=== PATIENT | female | born 1975 | race Caucasian/White ===

== ENCOUNTER 2021-06-15 14:18 | Outpatient (CLI) | payer BC | END 2021-06-15 14:19 | disposition home or self-care (01) | LOC: ULT 14:18 | PROVIDERS: ATTEND Specialist | DX: R22.32 Localized swelling, mass and lump, left upper limb (principal); N64.89 Other specified disorders of breast; N63.21 Unspecified lump in the left breast, upper outer quadrant; Z98.82 Breast implant status | CPT/HCPCS: 77066; G0279 ==

== ENCOUNTER 2021-06-29 11:30 | Outpatient (CLI) | payer BC | END 2021-06-29 11:31 | disposition home or self-care (01) | LOC: PET 11:30 | PROVIDERS: ATTEND Internal Medicine Hematology & Oncology | DX: C50.112 Malignant neoplasm of central portion of left female breast (principal); C79.89 Secondary malignant neoplasm of other specified sites; R22.32 Localized swelling, mass and lump, left upper limb; Z98.890 Other specified postprocedural states; Z98.82 Breast implant status | CPT/HCPCS: 78815; A9552 ==

== ENCOUNTER 2023-01-03 09:36 | Outpatient (CLI) | payer BC | END 2023-01-03 09:37 | disposition home or self-care (01) | LOC: BICMRI 09:36 | PROVIDERS: ATTEND Surgery | DX: C50.412 Malignant neoplasm of upper-outer quadrant of left female breast (principal) | CPT/HCPCS: A9577; C8908 ==